=== PATIENT | female | born 1975 | race Two or more races ===

== ENCOUNTER 2018-06-27 17:31 | Emergency (ER) | payer MEDICARE, MEDICAID ==
[~2018-06-27] VITALS: Ht 160 cm; Wt 68.2 kg
[~2018-06-27 17:31] MED LIST: ALPR-624 PO; BUPR-94 PO; CYCL-1 PO; DULO60CA45 PO; HYDR-4353 PO; KEP500T PO; LACT1CAP65 PO; TRAZ-218 PO; [UNRECOGNIZED DRUG - CODE] PO
[2018-06-27 17:49] VITALS: BP 133/98
--- NOTE | 2018-06-27 18:30 | NUR ---
FROM SB[facility] REPORT PT. IN LOBBY AWAITING ROOM SITTING WITH FAMILY.
--- NOTE | 2018-06-27 18:45 | NUR ---
UNABLE TO LOCATE PT., AFTER ATTEMPTING TO ROOM. ASSIGNED OF STAFF TO SEARCH AREA. PLACED CALL TO NUMBER ON FILE. LEFT MEASSAGE EXPRESSING CONCERN FOR PT WELL BEING AND URGING HER RETURN, GAVE DIRECT # TO [facility] ST[facility] AND MY NAME A CONTACT.
--- NOTE | 2018-06-27 19:10 | NUR ---
PT COULD NOT BE LOCATED WHEN ATTEMPTING TO ADMIT, PT NOT IN LOBBY, NOT IN PARKING LOT. ATTEMPTED TO CALL PT WITH NUMBER LISTED BUT THERE WAS NO ANSWER AND VOICEMAIL DOES NOT IDENTIFY RIVET BUCKER OF PHONE SO UNABLE TO LEAVE MESSAGE.
--- NOTE | 2018-06-27 19:32 | NUR ---
CALLED [facility] TO REPORT MISSING PT. REPORT MADE, CASE #[id number]
--- NOTE | 2018-06-27 19:40 | NUR ---
RECEIVED CALL BACK FROM OFFICER WITH [facility]. [facility] WILL BE ON LOOK OUT FOR PT.
== END 2018-06-27 18:45 | disposition left against medical advice (07) ==
LOC: ER 17:33
DX: R45.851 Suicidal ideations (principal); Z53.21 Procedure and treatment not carried out due to patient leaving prior to being seen by health care provider

== ENCOUNTER 2021-01-04 13:38 | Emergency (ER) | payer MEDICARE, MEDICAID ==
[~2021-01-04] VITALS: Ht 162.6 cm; Wt 72.7 kg
[~2021-01-04 13:38] MED LIST changes: -DULO60CA45 PO; +DULO60CA59 PO; -TRAZ-218 PO; +TRAZ-251 PO
[2021-01-04 13:53] VITALS: BP 114/63
== END 2021-01-04 16:25 | disposition home or self-care (01) ==
LOC: ER 13:39
DX: S51.811A Laceration without foreign body of right forearm, initial encounter (principal); G89.29 Other chronic pain; Z79.899 Other long term (current) drug therapy; X58.XXXA Exposure to other specified factors, initial encounter; Y93.89 Activity, other specified; Y92.89 Other specified places as the place of occurrence of the external cause; Y99.8 Other external cause status
CPT/HCPCS: 12001; 99282

== ENCOUNTER 2021-01-05 15:32 | Emergency (ER) | payer MEDICARE, MEDICAID ==
[~2021-01-05] VITALS: Ht 160 cm; Wt 75.0 kg
[2021-01-05 15:45] VITALS: BP 145/57
--- NOTE | 2021-01-05 22:08 | NUR ---
pt left due to wait time
== END 2021-01-05 22:08 | disposition left against medical advice (07) ==
LOC: ER 15:34
DX: R58 Hemorrhage, not elsewhere classified (principal); Z53.21 Procedure and treatment not carried out due to patient leaving prior to being seen by health care provider

== ENCOUNTER 2024-03-16 12:30 | Outpatient (CLI) | payer MEDICARE, MEDICAID | END 2024-03-16 23:59 | disposition home or self-care (01) | LOC: MRI 12:30 | PROVIDERS: ATTEND Physician Assistant Surgical | DX: M47.816 Spondylosis without myelopathy or radiculopathy, lumbar region (principal); M51.26 Other intervertebral disc displacement, lumbar region; M48.061 Spinal stenosis, lumbar region without neurogenic claudication; M46.1 Sacroiliitis, not elsewhere classified; M54.41 Lumbago with sciatica, right side | CPT/HCPCS: 72148 ==